=== PATIENT | female | born 1965 | race Two or more races ===

== ENCOUNTER 2021-07-28 16:26 | Emergency (ER) | payer OTHER, MEDICAID ==
[~2021-07-28] VITALS: Ht 157.5 cm; Wt 113.4 kg
[~2021-07-28 16:26] MED LIST: ASPI-394 PO; BENA10TA15 PO; CEFT1INJ33 IJ; GLIP10TA9 PO; INSU70IN9 SC; LEVEMIR SC; METF-372 PO; SITA100T7 PO
[2021-07-28 18:32] LABS: Basophils # (auto) 0.1 10 ^3/uL (0-0.2); Basophils % (auto) 0.5 % (0.0-2.0); Eosinophils # (auto) 0.1 10 ^3/uL (0-0.8); Eosinophils % (auto) 0.7 % (0.0-7.0); Hematocrit 26.1 % (36.0-46.0); Hemoglobin 8.4 g/dL (12.2-16.2); Lymphocytes # (auto) 1.4 10 ^3/uL (0.4-5.4); Mean Corpuscular Hemoglobin 28.5 pg (28.0-32.0); Mean Corpuscular Hgb Conc. 32.2 g/dL (32.0-36.0); Mean Corpuscular Volume 88.7 fL (80.0-100.0); Monocytes # (auto) 0.8 10 ^3/uL (0-1.3); Monocytes % (auto) 6.5 % (0.0-12.0); Neutrophils # (auto) 10.2 10 ^3/uL (1.6-8.6); Neutrophils % (auto) 81.3 % (37.0-80.0); Red Blood Cells 2.95 10^6/uL (4.0-5.20); Red Cell Distribution Width 14.7 % (11.8-14.3); White Blood Cell 12.6 10^3/uL (4.4-10.8)
[2021-07-28 18:50] LABS: Albumin 2.6 g/dL (3.4-5.0)
[2021-07-28 18:52] LABS: BUN/Creatinine Ratio 21.2
[2021-07-28 18:55] LABS: Bilirubin, Total 0.3 mg/dL (0.2-1.0); Total Protein 8.1 g/dL (6.4-8.2)
[2021-07-28] MEDS ORDERED: PIPERACILLIN-TAZOB 3.375GM 100 ML IV ONE (19:00)
[2021-07-28] MEDS ORDERED: LABETALOL HCL 5 MG/ML 4ML SYRINGE IV ONE (19:15)
[2021-07-28 21:55] VITALS: BP 166/72
== END 2021-07-28 22:54 | disposition short-term general hospital (02) ==
LOC: ER 16:26
DX: L03.012 Cellulitis of left finger (principal); I11.0 Hypertensive heart disease with heart failure; I50.9 Heart failure, unspecified; E11.9 Type 2 diabetes mellitus without complications; I48.91 Unspecified atrial fibrillation; J45.909 Unspecified asthma, uncomplicated; Z90.49 Acquired absence of other specified parts of digestive tract; Z79.82 Long term (current) use of aspirin; Z79.4 Long term (current) use of insulin; Z79.899 Other long term (current) drug therapy; Z88.1 Allergy status to other antibiotic agents; Z88.2 Allergy status to sulfonamides; Z88.8 Allergy status to other drugs, medicaments and biological substances
CPT/HCPCS: 36415; 73200; 80053; 82962; 83605; 85025; 87040; 96365; 96366; 99285; J2543

== ENCOUNTER 2021-10-03 20:07 | Inpatient (IN) | payer OTHER, MEDICAID ==
[~2021-10-03] VITALS: Ht 157.5 cm; Wt 117.9 kg
[2021-10-03] MEDS ORDERED: ONDANSETRON HCL 4 MG/2 ML VIAL IV ONE (21:15)
[2021-10-03] MEDS ORDERED: SODIUM CHLORIDE 0.9% 1,000 ML IV ONE (21:15)
[2021-10-03] MEDS ORDERED: PANTOPRAZOLE 40 MG/10 ML VIAL INJ IV ONE (21:45)
[2021-10-03 22:46] LABS: Basophils # (auto) 0 10 ^3/uL (0-0.2); Basophils % (auto) 0.5 % (0.0-2.0); Eosinophils # (auto) 0 10 ^3/uL (0-0.8); Eosinophils % (auto) 0.2 % (0.0-7.0); Monocytes # (auto) 0.7 10 ^3/uL (0-1.3); Neutrophils # (auto) 4.1 10 ^3/uL (1.6-8.6); Nucleated Red Blood Cells % 0.1 %; White Blood Cell 6.8 10^3/uL (4.4-10.8)
[2021-10-03 22:47] LABS: Hematocrit 20.4 % (36.0-46.0); Lymphocytes % (auto) 28.9 % (10.0-50.0); Mean Corpuscular Hemoglobin 25.9 pg (28.0-32.0); Mean Corpuscular Hgb Conc. 32.1 g/dL (32.0-36.0); Mean Corpuscular Volume 80.8 fL (80.0-100.0); Monocytes % (auto) 9.8 % (0.0-12.0); Neutrophils % (auto) 60.6 % (37.0-80.0); Red Blood Cells 2.53 10^6/uL (4.0-5.20); Red Cell Distribution Width 17.1 % (11.8-14.3)
[2021-10-03 22:50] LABS: Albumin 2.1 g/dL (3.4-5.0); BUN/Creatinine Ratio 20.7; Calcium 7.9 mg/dL (8.5-10.1); Magnesium 2.4 mg/dL (1.6-2.6)
[2021-10-03 22:52] LABS: INR 0.96 (0.9-1.15); Partial Thromboplastin Time 28.6 sec (23.6-33.0)
[2021-10-03 22:54] LABS: Bilirubin, Total 0.2 mg/dL (0.2-1.0); Hemoglobin 6.6 g/dL (12.2-16.2); Total Protein 7.2 g/dL (6.4-8.2)
[2021-10-04] VITALS (11 sets, daily range): BP systolic 136–165; BP diastolic 48–79
[2021-10-04] MEDS ORDERED: FUROSEMIDE 40 MG/4 ML VIAL IV ONE (00:45)
[2021-10-04] MEDS ORDERED: DEXTROSE (50%) 50ML SYRG IV PRN (02:15)
[2021-10-04] MEDS ORDERED: HYDROcodone-ACET 5/325MG TAB PO PRN (02:15)
[2021-10-04] MEDS ORDERED: DOCUSATE SOD 100 MG CAP PO PRN (02:15)
[2021-10-04] MEDS ORDERED: ACETAMINOPHEN 325 MG TAB PO PRN (02:15)
[2021-10-04] MEDS ORDERED: ONDANSETRON HCL 4 MG/2 ML VIAL IV PRN (02:15)
[2021-10-04] MEDS: SODIUM CHLOR 0.9% PF (SALINE LOCK) 10ML VIAL/SYR IV SCH ×2 (02:43→06:15)
[2021-10-04] MEDS ORDERED: MORPHINE SULFATE INJ 2 MG/ml SYRG IV PRN (03:45)
[2021-10-04] MEDS ORDERED: NITROGLYCERIN 0.4 MG SL TAB SL PRN (03:45)
[2021-10-04 04:49] LABS: Urine Bacteria NONE SEEN /hpf (None Seen); Urine Blood Negative /uL (Negative); Urine Hyaline Cast FEW /lpf (0 - 2); Urine Specific Gravity 1.012 (1.001-1.035); Urine WBC <1 /hpf (0 - 5)
[2021-10-04 06:32] LABS: Albumin 2.1 g/dL (3.4-5.0); BUN/Creatinine Ratio 21.1; Calcium 7.8 mg/dL (8.5-10.1); Potassium 3.8 mmol/L (3.5-5.1)
[2021-10-04 06:35] LABS: Bilirubin, Total 0.6 mg/dL (0.2-1.0); Total Protein 6.8 g/dL (6.4-8.2)
[2021-10-04] MEDS ORDERED: ACCU-CHEK COMFORT CURVE STRIP VI SCH (07:00)
[2021-10-04] MEDS ORDERED: InsuLIN REG 1unit/0.01ml Soln (100units/ml) SC SCH ×2 (07:00→22:00)
[2021-10-04] MEDS ORDERED: FUROSEMIDE 40 MG/4 ML VIAL IV SCH (10:00)
[2021-10-04] MEDS ORDERED: FAMOTIDINE (10MG/ML) 2ML VL IV SCH (10:00)
[2021-10-04] MEDS ORDERED: ASPirin 81 mg TAB PO SCH (10:00)
== END 2021-10-04 09:45 | disposition left against medical advice (07) | DRG 377 ==
LOC: ER 20:07 → TELE 10-04 03:45
PROVIDERS: ADMIT Nurse Practitioner Family; ATTEND Internal Medicine Pulmonary Disease
PROC: 30233N1 Transfusion of Nonautologous Red Blood Cells into Peripheral Vein, Percutaneous Approach (ICD-10-PCS; principal; 2021-10-04)
DX: K62.5 Hemorrhage of anus and rectum (principal); U07.1 COVID-19; I13.0 Hypertensive heart and chronic kidney disease with heart failure and stage 1 through stage 4 chronic kidney disease, or unspecified chronic kidney disease; N17.9 Acute kidney failure, unspecified; D64.9 Anemia, unspecified; E88.09 Other disorders of plasma-protein metabolism, not elsewhere classified; E11.22 Type 2 diabetes mellitus with diabetic chronic kidney disease; G89.29 Other chronic pain; H54.8 Legal blindness, as defined in USA; Z53.29 Procedure and treatment not carried out because of patient's decision for other reasons; I48.91 Unspecified atrial fibrillation; I50.9 Heart failure, unspecified; I89.0 Lymphedema, not elsewhere classified; N18.9 Chronic kidney disease, unspecified; J45.909 Unspecified asthma, uncomplicated; Z90.49 Acquired absence of other specified parts of digestive tract; Z88.8 Allergy status to other drugs, medicaments and biological substances; Z88.2 Allergy status to sulfonamides; I83.029 Varicose veins of left lower extremity with ulcer of unspecified site; I83.019 Varicose veins of right lower extremity with ulcer of unspecified site; Z79.4 Long term (current) use of insulin
CPT/HCPCS: 36415; 36430; 71045; 74176; 80053; 81001; 82962; 83036; 83735; 83880; 84484; 85025; 85610; 85730; 86850; 86900; 86901; 86920; 93005; 96374; 96375; 99291; C9113; G0378; J1815; J2405